=== PATIENT | male | born 1990 | race Caucasian/White ===

== ENCOUNTER 2019-06-29 15:44 | Emergency (ER) | payer SELFPAY ==
[~2019-06-29] VITALS: Ht 175 cm; Wt 75.4 kg
--- NOTE | 2019-06-29 16:11 | ED Psychosocial ---
General Chief Complaint: Suicidal Ideation Risk Stated Complaint: PSYCH EVAL History of Present Illness Date Seen by Provider: Jun 29, 2019 Time Seen by Provider: 15:50 Initial Comments 28-year-old male presents for suicidal ideations. reports longstanding history of depression, PTSD, cutting, suicide attempts with dull knife and pain pills in teenage years. He has not been seen for mental health for 5+ years. Has not taken any medications for depression or seen an outpatient mental health pro vider. From [place], [place], moved here a few months ago to be with an ex- girlfriend. They had disagreement and he is now feeling suicidal, denies a specific plan but reports that he will find a way to kill himself. Timing/Duration: getting worse, intermittent Associated Symptoms: suicidal ideation Allergies and Home Medications Allergies Coded Allergies: No Known Drug Allergies (Unverified , 06/29/19) Patient Home Medication List Home Medication List Reviewed: Yes Review of Systems Constitutional: no symptoms reported, see HPI; No fever Respiratory: no symptoms reported, see HPI; No cough Psychiatric/Neurological: See HPI, Depressed, Emotional Problems All Other Systems Reviewed Negative Unless Noted: Yes Past [id number]-Mjibse-Jwmwwb Hx Past Med/Social Hx: Reviewed Nursing Past Med/Soc Hx Patient Social History Recent Foreign Travel: No Contact w/Someone Who Travel: No Physical Exam Vital Signs - First Documented 06/29/19 15:47 Temp 36.7 Pulse 91 Resp 18 B/P (MAP) 137/87 (104) Pulse Ox 95 Capillary Refill : Height, Weight, BMI Height: '" Weight: lbs. oz. kg; BMI Method: General Appearance: WD/WN, no apparent distress HEENT: PERRL/EOMI, normal ENT inspection, TMs normal, pharynx normal Neck: non-tender, full range of motion, supple, normal inspection Respiratory: chest non-tender, lungs clear, normal breath sounds Cardiovascular: normal peripheral pulses, regular rate, rhythm Gastrointestinal: normal bowel sounds, non tender, soft Extremities: normal range of motion, non-tender, normal inspection Neurologic/Psychiatric: mat tester II-XII nml as tested, no motor/sensory deficits, alert, normal mood/affect, oriented x 3 Appearance/Memory: appropriate appearance, appropriate insight, neat, no memory impairment Behavior/Eye Contact: cooperative, avoids eye contact Thoughts/Hallucinations: normal thought pattern, no apparent hallucination Skin: normal color, warm/dry Progress/Results/Core Measures Results/Orders Lab Results Laboratory Tests Test 06/29/19 16:10 06/29/19 16:11 Range/Units Urine Color YELLOW Urine Clarity CLEAR Urine pH 5.0 5-9 Urine Specific [place] 1.025 H 1.016-1.022 Urine Protein NEGATIVE NEGATIVE Urine Glucose (UA) NEGATIVE NEGATIVE Urine Ketones 2+ H NEGATIVE Urine Nitrite NEGATIVE NEGATIVE Urine Bilirubin NEGATIVE NEGATIVE Urine Urobilinogen 0.2 < = 1.0 MG/DL Urine Leukocyte Esterase NEGATIVE NEGATIVE Urine RBC (Auto) NEGATIVE NEGATIVE Urine RBC NONE /HPF Urine WBC 5-10 H /HPF Urine Squamous Epithelial Cells 0-2 /HPF Urine Crystals PRESENT H /LPF Urine Amorphous Sediment FEW REGINA URATES H /LPF Urine Bacteria FEW H /HPF Urine Casts NONE /LPF Urine Mucus MODERATE H /LPF Urine Culture Indicated YES Urine Opiates Screen NEGATIVE NEGATIVE Urine Oxycodone Screen NEGATIVE NEGATIVE Urine Methadone Screen NEGATIVE NEGATIVE Urine Propoxyphene Screen NEGATIVE NEGATIVE Urine Barbiturates Screen NEGATIVE NEGATIVE Ur Tricyclic Antidepressants Screen NEGATIVE NEGATIVE Urine Phencyclidine Screen NEGATIVE NEGATIVE Urine Amphetamines Screen NEGATIVE NEGATIVE Urine Methamphetamines Screen NEGATIVE NEGATIVE Urine Benzodiazepines Screen NEGATIVE NEGATIVE Urine Cocaine Screen NEGATIVE NEGATIVE Urine Cannabinoids Screen NEGATIVE NEGATIVE White Blood Count 11.8 H 4.3-11.0 10^3/uL Red Blood Count 5.26 4.35-5.85 10^6/uL Hemoglobin 15.8 13.3-17.7 G/DL Hematocrit 44 40-54 % Mean Corpuscular Volume 83 80-99 FL Mean Corpuscular Hemoglobin 30 25-34 PG Mean Corpuscular Hemoglobin Concent 36 32-36 G/DL Red Cell Distribution Width 13.0 10.0-14.5 % Platelet Count 353 130-400 10^3/uL Mean Platelet Volume 9.6 7.4-10.4 FL Neutrophils (%) (Auto) 73 42-75 % Lymphocytes (%) (Auto) 18 12-44 % Monocytes (%) (Auto) 9 0-12 % Eosinophils (%) (Auto) 0 0-10 % Basophils (%) (Auto) 0 0-10 % Neutrophils # (Auto) 8.6 H 1.8-7.8 X 10^3 Lymphocytes # (Auto) 2.2 1.0-4.0 X 10^3 Monocytes # (Auto) 1.0 0.0-1.0 X 10^3 Eosinophils # (Auto) 0.0 0.0-0.3 10^3/uL Basophils # (Auto) 0.0 0.0-0.1 10^3/uL Sodium Level 137 135-145 MMOL/L Potassium Level 3.8 3.6-5.0 MMOL/L Chloride Level 102 98-107 MMOL/L Carbon Dioxide Level 22 21-32 MMOL/L Anion Gap 13 5-14 MMOL/L Blood Urea Nitrogen 13 7-18 MG/DL Creatinine 0.77 0.60-1.30 MG/DL Estimat Glomerular Filtration Rate > 60 BUN/Creatinine Ratio 17 Glucose Level 91 70-105 MG/DL Calcium Level 9.6 8.5-10.1 MG/DL Corrected Calcium 9.2 8.5-10.1 MG/DL Total Bilirubin 0.6 0.1-1.0 MG/DL Aspartate Amino Transf (AST/SGOT) 23 5-34 U/L Alanine Aminotransferase (ALT/SGPT) 12 0-55 U/L Alkaline Phosphatase 93 40-136 U/L Total Protein 8.1 6.4-8.2 GM/DL Albumin 4.5 3.2-4.5 GM/DL TSH [facility] 0.94 0.35-4.94 UIU/ML Salicylates Level < 5.0 L 5.0-20.0 MG/DL Acetaminophen Level < 10 L 10-30 UG/ML Serum Alcohol < 10 <10 MG/DL My Orders Orders - ANETA LAM Ua Culture If Indicated (06/29/19 15:50) Cbc With Automated Diff (06/29/19 15:50) Comprehensive Metabolic Panel (06/29/19 15:50) Alcohol (06/29/19 15:50) Drug Screen Stat (Urine) (06/29/19 15:50) Acetaminophen (06/29/19 15:50) Salicylate (06/29/19 15:50) Ekg Tracing (06/29/19 15:50) Thyroid Analyzer (06/29/19 15:50) Monitor-Rhythm Ecg Trace Only (06/29/19 15:50) General/Regular (06/29/19 Lunch) Urine Culture (06/29/19 16:10) Vital Signs/I&O 06/29/19 06/29/19 15:47 18:27 Temp 36.7 Pulse 91 84 Resp 18 18 B/P (MAP) 137/87 (104) 132/86 (104) Pulse Ox 95 95 Progress Progress Note : Time: 15:50 Progress Note Patient seen and evaluated, will obtain labs and EKG. Spoke to [facility] in [place], [place]. IN patient beds available. Patient requesting Voluntary Mental Health admission for suicidal ideations. 1630 Patient stable, eating in room. No complaints. 1700 Faxed Labs and information to [facility]. Beds available. [address] Merino at [facility], agreeable to accept patient. 1820 Spoke to Miriam Ramirez, will transport patient to [facility]. Patient has remained stable, no complaints and agreeable with plan. Departure Impression Primary Impression: Suicidal ideations Additional Impression: Acute depression Disposition: 02 XFER SHT-TRM HOSP Condition: Stable Transfer Transfer Reason: Exceeds level of care Time Spoke to Accepting Phy: 18:10 Transfer Time: 18:25 Transfer Facility: [facility] Method of Transfer: Miriam Noble Departure-Patient Inst. Referrals: NO,LOCAL PHYSICIAN (PCP/Family) Primary Care Physician Patient Instructions: OUTPT MENTAL HEALTH SERVICES ANETA LAM Jun 29, 2019 16:11
[2019-06-29 16:16] LABS: BASOPHILS % (AUTO) 0 % (0-10); EOSINOPHILS % (AUTO) 0 % (0-10); HEMATOCRIT 44 % (40-54); HEMOGLOBIN 15.8 G/DL (13.3-17.7); LYMPHOCYTES # (AUTO) 2.2 X 10^3 (1.0-4.0); LYMPHOCYTES % (AUTO) 18 % (12-44); MEAN CORPUSCULAR HEMOGLOBIN 30 PG (25-34); MEAN CORPUSCULAR HGB CONC 36 G/DL (32-36); MEAN CORPUSCULAR VOLUME 83 FL (80-99); MEAN PLATELET VOLUME 9.6 FL (7.4-10.4); MONOCYTES % (AUTO) 9 % (0-12); NEUTROPHILS # (AUTO) 8.6 X 10^3 (1.8-7.8); NEUTROPHILS % (AUTO) 73 % (42-75); PLATELET COUNT 353 10^3/uL (130-400); WHITE BLOOD COUNT 11.8 10^3/uL (4.3-11.0)
[2019-06-29 16:21] LABS: BILIRUBIN,URINE NEGATIVE (NEGATIVE); CLARITY,URINE CLEAR; COLOR,URINE YELLOW; GLUCOSE, URINE (UA) NEGATIVE (NEGATIVE); KETONES,URINE 2+ (NEGATIVE); LEUKOCYTE ESTERASE ,URINE NEGATIVE (NEGATIVE); NITRITE,URINE NEGATIVE (NEGATIVE); PROTEIN,URINE NEGATIVE (NEGATIVE)
--- NOTE | 2019-06-29 16:27 | NUR ---
DIET ORDERED FOR PT
[2019-06-29 16:38] LABS: ALANINE AMINOTRANSFERASE 12 U/L (0-55); ALBUMIN 4.5 GM/DL (3.2-4.5); ALKALINE PHOSPHATASE 93 U/L (40-136); BILIRUBIN,TOTAL 0.6 MG/DL (0.1-1.0); BUN/CREATININE RATIO 17; CALCIUM 9.6 MG/DL (8.5-10.1); CARBON DIOXIDE 22 MMOL/L (21-32); CHLORIDE 102 MMOL/L (98-107); CREATININE SERUM 0.77 MG/DL (0.60-1.30); GFR ESTIMATED > 60; GLUCOSE 91 MG/DL (70-105); POTASSIUM 3.8 MMOL/L (3.6-5.0); SALICYLATE < 5.0 MG/DL (5.0-20.0); SODIUM 137 MMOL/L (135-145); TOTAL PROTEIN 8.1 GM/DL (6.4-8.2)
[2019-06-29 16:41] LABS: ACETAMINOPHEN < 10 UG/ML (10-30)
[2019-06-29 16:54] LABS: AMPHETAMINE SCREEN, URINE NEGATIVE (NEGATIVE); BARBITURATE SCREEN URINE NEGATIVE (NEGATIVE); BENZODIAZEPINES SCREEN URINE NEGATIVE (NEGATIVE); CANNABINOID SCREEN, URINE NEGATIVE (NEGATIVE); COCAINE SCREEN URINE NEGATIVE (NEGATIVE); METHADONE STAT NEGATIVE (NEGATIVE); METHAMPHETAMINE SCREEN URINE S NEGATIVE (NEGATIVE); OPIATE SCREEN URINE NEGATIVE (NEGATIVE); OXYCODONE STAT NEGATIVE (NEGATIVE); PROPOXYPHENE STAT NEGATIVE (NEGATIVE); TRICYCLIC ANTIDEPRESSANTS SCRE NEGATIVE (NEGATIVE)
[2019-06-29 17:02] LABS: AMORPHOUS SEDIMENT,UR FEW AMOR URATES /LPF; BACTERIA,URINE FEW /HPF; SQUAMOUS EPITHELIAL CELL,UR 0-2 /HPF
--- NOTE | 2019-06-29 17:19 | NUR ---
100% OF DIET TAKEN IN
--- OUTSIDE RECORDS SUMMARY | 2019-06-29 18:13 | XMS REPORT | Continuity of Care Document ---
Author Organization Unknown Address Unknown Phone Unavailable Allergies There is no data. Medications There is no data. Problems There is no data. Procedures There is no data. Results There is no data. Encounters ACCT No. Visit Date/Time Discharge Status Pt. Type Provider Facility Loc./Unit Complaint [id number] 06/29/2019 15:47:[address] Emergency ANETA LAM Via [facility] ER PSYCH EVAL
--- NOTE | 2019-06-29 18:17 | NUR ---
CONSENT FOR TRANSFER SIGNED BY PT. JOSE M ALDRIDGE CONTACTED FOR TRANSFER TO [facility]
[2019-06-29 18:27] VITALS: BP 132/86
--- NOTE | 2019-06-29 18:27 | NUR ---
JOSE M ALDRIDGE TO TRANSFER PT TO [facility] IN [place].
== END 2019-06-29 18:27 ==
LOC: ER 15:47
DX: R45.851 Suicidal ideations (principal); F32.9 Major depressive disorder, single episode, unspecified
CPT/HCPCS: 36415; 80053; 80306; 80320; 80329; 81000; 84443; 85025; 87088; 93005